=== PATIENT | male | born 1955 | race Caucasian/White ===

== ENCOUNTER → 2018-12-15 | Outpatient (CLI) | payer OTHER ==
[~2018-12-15] MED LIST: ASPIRIN325 MG PO; CRESTOR PO; OMEPRAZOLE40 MG PO; PANTOPRAZOLE SO40 MG PO; SYNTHROID200 MCG PO; TESTOSTERO200 MG/1 M INJ; VITAMIN B-121000 MC1 PO; VITAMIN D PO
--- NOTE | 2018-12-15 09:38 | Diagnostic Imaging Report ---
EXAM: US ABDOMEN COMPLETE DATE: 12/15/2018 7:42 AM INDICATION: Epigastric pain COMPARISON: None TECHNIQUE: Transverse and longitudinal chamberlain scale and color doppler sonographic images of the upper abdomen were obtained. FINDINGS: LIVER 17.0 cm in the right midclavicular line. Normal echogenicity, normal contour, no masses. SPLEEN 17.0 cm in maximum diameter. Normal echogenicity, no masses. GALLBLADDER No stones, sludge, wall-thickening or pericholecystic fluid. Negative sonographic Cortez's sign. BILE DUCTS No intra nor extra-hepatic biliary dilation. Common bile duct measures 0.3 cm PANCREAS: Visualized portions are normal. RIGHT KIDNEY: 11.4 cm Echogenicity: Normal Collecting System: No hydronephrosis Stones: None Cyst/Mass: None LEFT KIDNEY: 12.2 cm Echogenicity: Normal Collecting System: No hydronephrosis Stones: None Cyst/Mass: None VESSELS: Aorta: Visualized portions are within normal size limits Inferior Vena Cava: Visualized portions are normal Main Portal Vein: 1.1 cm, normal size with hepatopetal flow. FREE FLUID: None IMPRESSION: 1. Unremarkable abdominal ultrasound. Signed by: Dr. Nemesio Avina MD on 12/15/2018 9:34 AM
== END ==
LOC: US 07:33
PROVIDERS: ATTEND Internal Medicine Gastroenterology
DX: R10.13 Epigastric pain (principal)
CPT/HCPCS: 76700